=== PATIENT | female | born 1995 ===

== ENCOUNTER 2017-11-04 09:14 | Inpatient (IN) | payer OTHER ==
[~2017-11-04] VITALS: Ht 160 cm; Wt 95.3 kg
[2017-12-04] MEDS ORDERED: PRENATAL TABLE1 EAC1 PO (03:15)
== END 2017-12-06 16:25 | disposition home or self-care, planned readmission (81) | DRG 775 ==
LOC: LDR 12-04 02:23 → OB/GYN 12-04 02:23
PROC: 0UQGXZZ Repair Vagina, External Approach (ICD-10-PCS; principal; 2017-12-04)
PROC: 10E0XZZ Delivery of Products of Conception, External Approach (ICD-10-PCS; 2017-12-04)
PROC: 0W8NXZZ Division of Female Perineum, External Approach (ICD-10-PCS; 2017-12-04)
PROC: 4A1HXCZ Monitoring of Products of Conception, Cardiac Rate, External Approach (ICD-10-PCS; 2017-12-04)
DX: O71.4 Obstetric high vaginal laceration alone (principal); Z3A.38 38 weeks gestation of pregnancy; Z37.0 Single live birth

== ENCOUNTER 2021-12-27 10:06 | Outpatient (CLI) | payer OTHER ==
[~2021-12-27 10:06] MED LIST: PRENATAL TABLE1 EAC1 PO
== END 2021-12-27 10:56 | disposition home or self-care (01) ==
LOC: NST 10:06
PROVIDERS: ATTEND Obstetrics & Gynecology Gynecology
DX: Z34.83 Encounter for supervision of other normal pregnancy, third trimester (principal)